=== PATIENT | female | born 1990 | race Caucasian/White ===

== ENCOUNTER 2018-08-04 15:10 | Emergency (ER) | payer OTHER ==
[~2018-08-04] VITALS: Ht 175.3 cm; Wt 133.8 kg
[2018-08-04 15:14] VITALS: Ht 175.3 cm; Wt 133.8 kg
[2018-08-04 15:59] LABS: microscopic required? NO
[2018-08-04 16:05] LABS: urine erythrocyte NEGATIVE (NEGATIVE)
[2018-08-04 17:25] VITALS: BP 133/80
== END 2018-08-04 17:17 | disposition home or self-care (01) ==
LOC: ED 15:10
DX: M62.830 Muscle spasm of back (principal)
CPT/HCPCS: J1885

== ENCOUNTER 2019-03-08 22:26 | Emergency (ER) | payer OTHER ==
[~2019-03-08] VITALS: Ht 172.7 cm; Wt 134.7 kg
[2019-03-08 22:30] VITALS: Ht 172.7 cm; Wt 134.7 kg
[2019-03-09 02:36] VITALS: BP 106/71
== END 2019-03-09 02:36 | disposition home or self-care (01) ==
LOC: ED 22:26
DX: S05.02XA Injury of conjunctiva and corneal abrasion without foreign body, left eye, initial encounter (principal); S05.01XA Injury of conjunctiva and corneal abrasion without foreign body, right eye, initial encounter; H10.89 Other conjunctivitis; X58.XXXA Exposure to other specified factors, initial encounter; Y93.89 Activity, other specified; Y92.89 Other specified places as the place of occurrence of the external cause; Y99.8 Other external cause status
CPT/HCPCS: J7030; V2632

== ENCOUNTER 2020-04-09 14:11 | Emergency (ER) | payer OTHER ==
[~2020-04-09] VITALS: Ht 175.3 cm; Wt 142.9 kg
[2020-04-09 14:20] VITALS: Ht 175.3 cm; Wt 142.9 kg
[2020-04-09 15:38] LABS: BASOPHIL % 0.2 % (0-2); PLATELET COUNT 344 x10^3mcL (130-400)
[2020-04-09 15:44] LABS: RED CELL DISTRIBUTION WIDTH 14.6 % (11.5-14.5)
[2020-04-09 16:04] LABS: T4(THYROXINE) 7.3 ug/dL (4.7-13.3)
[2020-04-09 16:36] VITALS: BP 147/86
== END 2020-04-09 16:36 | disposition home or self-care (01) ==
LOC: ED 14:11
PROVIDERS: Emergency Medicine
DX: N93.9 Abnormal uterine and vaginal bleeding, unspecified (principal); R03.0 Elevated blood-pressure reading, without diagnosis of hypertension

== ENCOUNTER 2020-05-01 20:27 | Emergency (ER) | payer OTHER ==
[~2020-05-01] VITALS: Ht 175.3 cm; Wt 144.2 kg
[2020-05-01 20:49] VITALS: Ht 175.3 cm; Wt 144.2 kg
[2020-05-01 23:03] LABS: BASOPHIL % 0.4 % (0-2); PLATELET COUNT 386 x10^3mcL (130-400)
[2020-05-01 23:04] LABS: RED CELL DISTRIBUTION WIDTH 15.9 % (11.5-14.5)
[2020-05-01 23:14] LABS: rbc morphology (normal/abnorm) ABNORMAL (NORMAL)
[2020-05-01 23:35] LABS: CALCIUM 8.3 mg/dL (8.5-10.1); CARBON DIOXIDE 27.6 mmol/L (21-32); CHLORIDE SERUM 107 mmol/L (98-107); CREATININE SERUM 0.7 mg/dL (0.6-1.0); GFR1 > 60 mL/min; GLUCOSE SERUM 95 mg/dL (74-106); POTASSIUM SERUM 3.6 mmol/L (3.5-5.1); SODIUM SERUM 140 mmol/L (136-145)
[2020-05-02 05:37] VITALS: BP 113/49
== END 2020-05-02 05:40 | disposition home or self-care (01) ==
LOC: ED 20:27
PROVIDERS: Emergency Medicine
DX: D64.9 Anemia, unspecified (principal); N93.9 Abnormal uterine and vaginal bleeding, unspecified
CPT/HCPCS: 87491; 87591; J7050; P9016